=== PATIENT | male | born 1995 | race African-American/Black ===

== ENCOUNTER 2022-03-13 19:50 | Emergency (ER) | payer SELFPAY ==
[2022-03-13] MEDS ORDERED: HYDROCODONE/APAP 7.5/325 MG TAB ONE (20:37)
[2022-03-13] MEDS ORDERED: LIDOCAINE 1% W/EPI 1:100,000 30 ML VIAL ONE (20:38)
[2022-03-13] MEDS ORDERED: IBUPROFEN 400 MG TAB ONE (20:38)
[2022-03-13] MEDS ORDERED: BUPIVACAINE 0.5% PF 10 ML VIAL ONE (20:38)
--- NOTE | 2022-03-13 21:37 | EDPHYS ---
Physician Documentation [facility] Name: Jonathan Navarro Age: 26 yrs Sex: Male : 1995 Arrival Date: 03/13/2022 Time: 19:54 Bed 25 Private MD: ED Physician Ze Rider HPI: 03/13 20:30 This 26 yrs old Black Male presents to ER via Ambulatory with complaints of Abscess. cp 20:30 The patient presents with an abscess of the lower back. Description: erythematous, cp swollen, warm. 20:30 Onset: The symptoms/episode began/occurred 2 day(s) ago. Associated signs and symptoms: cp Pertinent positives: erythema, swelling, Pertinent negatives: discharge, drainage, fever, shortness of breath, vomiting. Historical: - Allergies: 20:04 No Known Allergies; kr3 - PMHx: 20:04 None; kr3 - PSHx: 20:04 None; kr3 - Immunization history:: Adult Immunizations. - Social history:: Smoking status: Patient reports the use of cigarette tobacco products, cigars, 6/day. ROS: 20:35 Constitutional: Negative for body aches, chills, fever, poor PO intake. cp 20:35 Eyes: Negative for injury, pain, redness, and discharge. cp 20:35 ENT: Negative for drainage from ear(s), ear pain, sore throat, difficulty swallowing, difficulty handling secretions. 20:35 Cardiovascular: Negative for chest pain. 20:35 Respiratory: Negative for cough, shortness of breath, wheezing. 20:35 Abdomen/GI: Negative for abdominal pain, nausea, vomiting, and diarrhea. 20:35 Back: Positive for pain at rest, pain with movement. 20:35 Skin: Positive for abscess, erythema, of the lower back. 20:35 Neuro: Negative for altered mental status, headache, weakness. 20:35 All other systems are negative. Exam: 20:40 Constitutional: The patient appears in no acute distress, alert, awake, non-toxic, well cp developed, well nourished. 20:40 Head/Face: Normocephalic, atraumatic. cp 20:40 Eyes: Periorbital structures: appear normal, Conjunctiva: normal, no exudate, no injection, Sclera: no appreciated abnormality, Lids and lashes: appear normal, bilaterally. 20:40 ENT: External ear(s): are unremarkable, Nose: is normal, Mouth: Lips: moist, Oral mucosa: moist, Posterior pharynx: Airway: no evidence of obstruction, patent. 20:40 Chest/axilla: Inspection: normal. 20:40 Cardiovascular: Rate: normal, Rhythm: regular. 20:40 Respiratory: the patient does not display signs of respiratory distress, Respirations: normal, no use of accessory muscles, no retractions, labored breathing, is not present, Breath sounds: are clear throughout, no decreased breath sounds, no stridor, no wheezing. 20:40 Abdomen/GI: Inspection: abdomen appears normal, Palpation: abdomen is soft and non-tender, in all quadrants. 20:40 Back: pain, that is moderate, of the mid low back, ROM is painful, with all movement. 20:40 Skin: abscess, that is moderate sized, of the mid low back, with surrounding cellulitis, that is mild. 20:40 Neuro: Orientation: to person, place \T\ time. Mentation: is normal, Motor: moves all fours, strength is normal, Sensation: is normal. Vital Signs: 19:59 BP 123 / 65; Pulse 83; Resp 16; Temp 98.9; Pulse Ox 98% on R/A; Weight 63.5 kg; Height kr3 6 ft. 0 in. (182.88 cm); Pain 7/10; 21:00 BP 117 / 75; Pulse 73; Resp 16; Pulse Ox 100% on R/A; tp1 22:15 BP 120 / 74; Pulse 51; Resp 16; Temp 98.2; Pulse Ox 95% on R/A; tp1 19:59 Body Mass Index 18.99 (63.50 kg, 182.88 cm) kr3 Procedures: 23:00 I \T\ D: Incision and drainage was performed for an abscess of the mid low back Prepped cp with Betadine, Anesthetized with 7 ccs mixture 1% lidocaine with epi and 0.5% marcaine. Incised with #11 blade. Drained moderate amount purulent fluid. Packed with iodoform gauze, Dressing: sterile 4x4 gauze, the patient tolerated the procedure well. MDM: 20:09 Patient medically screened. cp 21:00 Differential diagnosis: abscess, allergic reaction, cellulitis, sepsis. cp 23:11 Data reviewed: vital signs, nurses notes, lab test result(s), and as a result, I will cp discharge patient. 23:11 Counseling: I had a detailed discussion with the patient and/or guardian regarding: the cp historical points, exam findings, and any diagnostic results supporting the discharge/admit diagnosis, lab results, the need for outpatient follow up, a general surgeon, to return to the emergency department if symptoms worsen or persist or if there are any questions or concerns that arise at home. Response to treatment: the patient's symptoms have markedly improved after treatment, and as a result, I will discharge patient. 03/13 22:03 Order name: CBC with Diff; Complete Time: 22:59 cp 03/13 22:59 Interpretation: Normal except: WBC 13.90; RBC 3.92; HGB 12.7; HCT 38.1; MPV 7.5; NEUT A cp 9.1. 03/13 22:03 Order name: BMP; Complete Time: 22:59 cp 03/13 20:27 Order name: I\T\D Setup; Complete Time: 20:47 cp 03/13 22:03 Order name: IV; Complete Time: 22:11 cp 03/13 22:12 Order name: Recheck Vital Signs: recheck temperature please; Complete Time: 22:22 vc1 Administered Medications: 20:42 Drug: Ibuprofen 800 mg Route: PO; tp1 21:47 Follow up: Response: Pain is decreased tp1 20:42 Drug: Hydrocodone-Acetaminophen (7.5 mg-325 mg) 1 tabs Route: PO; tp1 21:47 Follow up: Response: Pain is decreased tp1 21:27 Drug: Lidocaine-Epinephrine -1%: (1:100,000) 10 ml {Note: Administered by PA Page.} tp1 Volume: 20 ml; Route: Infiltration; 21:47 Follow up: Response: No adverse reaction tp1 21:27 Drug: Marcaine (bupivacaine) (0.5 %) 10 ml {Note: administered by RAD PAGE .} Volume: 10 tp1 ml; Route: Infiltration; 21:47 Follow up: Response: No adverse reaction tp1 21:55 Drug: Bactrim (trimethoprim-sulfamethoxazole) (160 mg-800 mg (DS) 1 tablet Route: PO; tp1 21:55 Follow up: Response: Medication administered at discharge. tp1 22:11 Drug: NS 0.9% 1000 ml Route: IV; Rate: 1 bolus; Site: right antecubital; tp1 23:36 Follow up: Response: No adverse reaction; IV Status: Completed infusion; IV Intake: as6 1000ml 23:18 Drug: Clindamycin 600 mg Route: IVPB; Infused Over: 30 mins; Site: right antecubital; as6 23:36 Follow up: Response: No adverse reaction; IV Status: Completed infusion; IV Intake: [id number] Disposition Summary: 03/13/22 23:11 Discharge Ordered Location: Home(03/13/22 23:11) cp Problem: new(03/13/22 23:11) cp Symptoms: have improved(03/13/22 23:11) cp Condition: Stable(03/13/22 23:11) cp Diagnosis - Cutaneous abscess of back [any part, except buttock](03/13/22 23:11) cp Followup: cp - With: Timo Tellez MD - When: 1 - 2 days - Reason: Wound Recheck Discharge Instructions: - Discharge Summary Sheet cp - Skin Abscess cp - Incision and Drainage cp Forms: - Medication Reconciliation Form cp - Thank You Letter cp - Antibiotic Education cp - Prescription Opioid Use cp - Work release form as6 Prescriptions: - Clindamycin HCl 300 mg Oral Capsule - take 1 capsule by ORAL route every 6 hours for 10 days; 40 capsule; Refills: 0, cp Product Selection Permitted - Ibuprofen 800 mg Oral Tablet - take 1 tablet by ORAL route every 8 hours As needed take with food; 30 tablet; cp Refills: 0, Product Selection Permitted - Bactrim DS 800-160 mg Oral Tablet - take 1 tablet by ORAL route every 12 hours for 10 days; 20 tablet; Refills: 0, cp Product Selection Permitted - Tramadol 50 mg Oral Tablet - take 1 tablet by ORAL route every 8 hours as needed; 12 tablet; Refills: 0, cp Product Selection Permitted Signatures: Dispatcher [employer] EDMS Ze Hogan PA PA cp Jose Cruz RN RN as6 Lizeth Campo RN RN tp1 Svitlana Daily RN RN vc1 Alicia Pulido RN RN kr3 Corrections: (The following items were deleted from the chart) 22:03 21:37 Home cp cp 22: 21:37 new cp cp 22: 21:37 have improved cp cp 22: 21:37 Stable cp cp 22: 21:37 Cutaneous abscess of back [any part, except buttock] cp cp
--- NOTE | 2022-03-13 21:37 | ER ---
Nurse's Notes [facility] Name: Jonathan Navarro Age: 26 yrs Sex: Male : 1995 Arrival Date: 03/13/2022 Time: 19:54 Bed 25 Private MD: Diagnosis: Cutaneous abscess of back [any part, except buttock] Presentation: 03/13 19:59 Chief complaint: Patient states: I have a bump on the lower right back that has been kr3 there for years, it started smaller and has gotten bigger over the last couple and become painful. Coronavirus screen: Vaccine status: Patient reports being unvaccinated. Client denies travel out of the [place] in the last 14 days. Ebola Screen: Patient denies travel to an Ebola-affected area in the 21 days before illness onset. Initial Sepsis Screen: Does the patient meet any 2 criteria? No. Patient's initial sepsis screen is negative. Does the patient have a suspected source of infection? No. Patient's initial sepsis screen is negative. Risk Assessment: Do you want to hurt yourself or someone else? Patient reports no desire to harm self or others. Onset of symptoms was March 11, 2022. 19:59 Method Of Arrival: Ambulatory kr3 19:59 Acuity: REYES 4 kr3 Triage Assessment: 20:05 General: Appears in no apparent distress. uncomfortable, Behavior is calm, cooperative, kr3 appropriate for age. Pain: Complains of pain in coccyx. Historical: - Allergies: 20:04 No Known Allergies; kr3 - PMHx: 20:04 None; kr3 - PSHx: 20:04 None; kr3 - Immunization history:: Adult Immunizations. - Social history:: Smoking status: Patient reports the use of cigarette tobacco products, cigars, 6/day. Screenin:18 Abuse screen: Denies threats or abuse. Denies injuries from another. Nutritional tp1 screening: No deficits noted. Tuberculosis screening: No symptoms or risk factors identified. Fall Risk None identified. Assessment: 20:15 General: Appears in no apparent distress. uncomfortable, Behavior is calm, cooperative. tp1 Pain: Complains of pain in coccyx Pain does not radiate. Pain currently is 6 out of 10 on a pain scale. Quality of pain is described as sharp, Pain began 2-3 days ago. Is continuous, Aggravated by repositioning, weight bearing. Neuro: Level of Consciousness is awake, alert, obeys commands, Oriented to person, place, time, situation. Cardiovascular: Patient's skin is warm and dry. Respiratory: Airway is patent Respiratory effort is even, unlabored. GI: Abdomen is flat, non-distended. : No signs and/or symptoms were reported regarding the genitourinary system. EENT: No signs and/or symptoms were reported regarding the EENT system. Derm: Skin is pink, warm \\T\\ dry. swelling and redness noted to the coccyx. no drainage noted. Musculoskeletal: Circulation, motion, and sensation intact. Swelling present in coccyx. 21:30 Reassessment: Patient appears in no apparent distress at this time. No changes from tp1 previously documented assessment. Patient and/or family updated on plan of care and expected duration. Pain level reassessed. Patient is alert, oriented x 3, equal unlabored respirations, skin warm/dry/pink. 21:57 Neuro: Reports dizziness, "Body feels heavy". Neuro: Level of Consciousness is awake, tp1 alert, obeys commands, Oriented to person, place, time, situation. Cardiovascular: Capillary refill < 3 seconds in bilateral fingers. Cardiovascular: Reports diaphoresis, lightheadedness, Denies chest pain. Respiratory: Airway is patent Respiratory effort is even, unlabored, Denies shortness of breath. Derm: Skin is diaphoretic. 21:57 General: Behavior is cooperative, anxious. tp1 22:21 Reassessment: PT states he is feeling better and no longer appears diaphoretic. PT tp1 resting comfortably in bed on phone. Vital Signs: 19:59 BP 123 / 65; Pulse 83; Resp 16; Temp 98.9; Pulse Ox 98% on R/A; Weight 63.5 kg; Height kr3 6 ft. 0 in. (182.88 cm); Pain 7/10; 21:00 BP 117 / 75; Pulse 73; Resp 16; Pulse Ox 100% on R/A; tp1 22:15 BP 120 / 74; Pulse 51; Resp 16; Temp 98.2; Pulse Ox 95% on R/A; tp1 19:59 Body Mass Index 18.99 (63.50 kg, 182.88 cm) kr3 ED Course: 19:54 Patient arrived in ED. bp1 19:57 [facility] cp 19:57 Ze Rider MD is Attending Physician. cp 20:04 Triage completed. kr3 20:06 Arm band placed on right wrist. Patient placed in an exam room, on a stretcher. kr3 20:15 Lizeth Campo, RN is Primary Nurse. tp1 20:18 Patient has correct armband on for positive identification. Placed in gown. Bed in low tp1 position. Call light in reach. Pulse ox on. NIBP on. 21:37 Timo Tellez MD is Referral Physician. cp 21:45 Assist provider with I \\T\\ D: of an abscess on Set up I\\T\\D tray. Performed by Ze Hogan tp 1 RAD Patient tolerated well. 21:55 Patient did not have IV access during this emergency room visit. tp1 22:16 Inserted saline lock: 20 gauge in right antecubital area, using aseptic technique. tp1 Blood collected. 23:11 Timo Tellez MD is Referral Physician. cp Administered Medications: 20:42 Drug: Ibuprofen 800 mg Route: PO; tp1 21:47 Follow up: Response: Pain is decreased tp1 20:42 Drug: Hydrocodone-Acetaminophen (7.5 mg-325 mg) 1 tabs Route: PO; tp1 21:47 Follow up: Response: Pain is decreased tp1 21:27 Drug: Lidocaine-Epinephrine -1%: (1:100,000) 10 ml {Note: Administered by RAD Hogan.} tp1 Volume: 20 ml; Route: Infiltration; 21:47 Follow up: Response: No adverse reaction tp1 21:27 Drug: Marcaine (bupivacaine) (0.5 %) 10 ml {Note: administered by RAD HOGAN .} Volume: 10 tp1 ml; Route: Infiltration; 21:47 Follow up: Response: No adverse reaction tp1 21:55 Drug: Bactrim (trimethoprim-sulfamethoxazole) (160 mg-800 mg (DS) 1 tablet Route: PO; tp1 21:55 Follow up: Response: Medication administered at discharge. tp1 22:11 Drug: NS 0.9% 1000 ml Route: IV; Rate: 1 bolus; Site: right antecubital; tp1 23:36 Follow up: Response: No adverse reaction; IV Status: Completed infusion; IV Intake: as6 1000ml 23:18 Drug: Clindamycin 600 mg Route: IVPB; Infused Over: 30 mins; Site: right antecubital; as6 23:36 Follow up: Response: No adverse reaction; IV Status: Completed infusion; IV Intake: [id number] Medication: 21:55 VIS not applicable for this client. tp1 Intake: 23:36 IV: 50ml; Total: 50ml. as6 23:36 IV: 1000ml; Total: 1050ml. as6 Outcome: 21:37 Discharge ordered by MD. cp 21:55 Discharged to home ambulatory. tp1 21:55 Condition: good 21:55 Discharge instructions given to patient, Instructed on discharge instructions, follow up and referral plans. medication usage, Demonstrated understanding of instructions, follow-up care, medications, Prescriptions given X 3. 21:56 Patient left the ED. tp1 23:11 Discharge ordered by MD. cp 23:36 Patient left the ED. as6 Signatures: Ze Hogan PA PA cp [place]ia[place], Brittany bp1 Slawson, Ashby, RN RN as6 Lizeth Campo RN RN tp1 Alicia Pulido RN RN kr3 Corrections: (The following items were deleted from the chart) 22:21 21:57 Neuro: Reports dizziness, "Body feels heavy". tp1 tp1 22:21 21:57 Reassessment: tp1 tp1 22:22 21:57 Neuro: Level of Consciousness is awake, alert, obeys commands, Oriented to tp1 person, place, time, situation, tp1
[2022-03-13] MEDS ORDERED: SMZ./TMP. 800/160 MG TABLET ONE (21:52)
[2022-03-13] MEDS ORDERED: NA CHLORIDE 0.9% 1,000 ML ONE (22:04)
[2022-03-13 22:26] LABS: Absolute Lymphocytes (CBC) 3.3 K/uL (0.7-4.9); Hematocrit 38.1 % (39.6-49.0); Lymphocytes % 23.6 % (15.3-44.8); MCV 97.2 fL (80-100); MPV 7.5 fL (7.6-11.3); RBC Red Blood Cell Count 3.92 M/uL (4.33-5.43)
[2022-03-13 22:37] LABS: Potassium 3.9 mmol/L (3.5-5.1)
[2022-03-13] MEDS ORDERED: CLINDAMYCIN 600MG/D5W 600 MG/50 ML BAG IV ONE (23:17)
[2022-03-14 00:31] VITALS: BP 120/74; TEMP 98.2; O2SAT 95
== END 2022-03-13 23:36 | disposition home or self-care (01) ==
LOC: ER 19:50
PROC: 0H96XZZ Drainage of Back Skin, External Approach (ICD-10-PCS; principal; 2022-03-13)
DX: L02.212 Cutaneous abscess of back [any part, except buttock and flank] (principal)
CPT/HCPCS: 36415; 80048; 85025; 96361; 96365; 99284; J7030

== ENCOUNTER 2022-03-16 11:19 | Emergency (ER) | payer SELFPAY ==
--- NOTE | 2022-03-16 12:36 | EDPHYS ---
Physician Documentation [facility] Name: Jonathan Navarro Age: 26 yrs Sex: Male : 1995 Arrival Date: 03/16/2022 Time: 11:20 Bed 11 Private MD: ED Physician Esa Stark HPI: 03/16 12:05 This 26 yrs old Black Male presents to ER via Ambulatory with complaints of Wound cp Recheck. 12:05 Patient presents to ED for recheck of: abscess. The affected area is on the lower back. cp Previous treatment: The patient was initially treated 3 day(s) ago, the care was rendered at [facility], Treatment type: The patient's original treatment included an I\T\D, oral antibiotics, Bactrim, Clindamycin. Progress: The patient reports Improving. Historical: - Allergies: 12:00 No Known Allergies; kb3 - Home Meds: 12:00 None [Active]; kb3 - PMHx: 12:00 None; kb3 - PSHx: 12:00 None; kb3 - Immunization history:: Adult Immunizations up to date, Client reports having NOT received the Covid vaccine. Last tetanus immunization: up to date. - Social history:: Smoking status: Patient denies any tobacco usage or history of. ROS: 12:10 Constitutional: Negative for body aches, chills, fever. cp 12:10 Eyes: Negative for injury, pain, redness, and discharge. cp 12:10 ENT: Negative for drainage from ear(s), ear pain, sore throat, difficulty swallowing, difficulty handling secretions. 12:10 Cardiovascular: Negative for chest pain. 12:10 Respiratory: Negative for cough, shortness of breath, wheezing. 12:10 Abdomen/GI: Negative for abdominal pain, nausea, vomiting, and diarrhea. 12:10 Skin: Positive for abscess, of the lower back. 12:10 Neuro: Negative for altered mental status, headache, weakness. 12:10 All other systems are negative. Exam: 12:15 Constitutional: The patient appears in no acute distress, alert, awake, non-toxic, well cp developed, well nourished. 12:15 Skin: abscess, of the lower back, Wound recheck: Abscess: the wound has improved, decreased discharge, decreased erythema, decreased surrounding cellulitis, decreased swelling. Vital Signs: 11:58 BP 130 / 66; Pulse 62; Resp 18; Temp 98.1; Pulse Ox 100% ; Weight 68.04 kg; Height 6 kb3 ft. 0 in. (182.88 cm); Pain 0/10; 11:58 Body Mass Index 20.34 (68.04 kg, 182.88 cm) kb3 Procedures: 12:30 Performed repacking of abscess with iodoform 1/4 inch gauze. cp MDM: 12:02 Patient medically screened. cp 12:35 Data reviewed: vital signs, nurses notes, and as a result, I will discharge patient. cp 12:35 Counseling: I had a detailed discussion with the patient and/or guardian regarding: the cp historical points, exam findings, and any diagnostic results supporting the discharge/admit diagnosis, the need for outpatient follow up, a general surgeon. Administered Medications: No medications were administered Disposition: 13:45 Co-signature as Attending Physician, Esa Stark DO I was immediately available on-site ms3 in the Emergency Department for consultation in the care of the patient.. Disposition Summary: 03/16/22 12:35 Discharge Ordered Location: Home cp Problem: new cp Symptoms: have improved cp Condition: Stable cp Diagnosis - Encounter for attention to dressings, sutures and drains cp Followup: cp - With: Timo Tellez MD - When: 1 - 2 days - Reason: Wound Recheck Discharge Instructions: - Discharge Summary Sheet cp - Incision and Drainage, Care After cp Forms: - Medication Reconciliation Form cp - Thank You Letter cp - Antibiotic Education cp - Prescription Opioid Use cp Signatures: Ze Hogan PA PA cp Esa Stark DO DO ms3 Rachel Fuentes, RN RN kb3
--- NOTE | 2022-03-16 12:36 | ER ---
Nurse's Notes [facility] Name: Jonathan Navarro Age: 26 yrs Sex: Male : 1995 Arrival Date: 03/16/2022 Time: 11:20 Bed 11 Private MD: Diagnosis: Encounter for attention to dressings, sutures and drains Presentation: 03/16 11:58 Chief complaint: Patient states: Pt reporting back to ED for wound recheck and dressing kb3 change. Pt was in this ED on Sat and had a pilonidal cyst incision and drainage procedure. Coronavirus screen: Vaccine status: Patient reports being unvaccinated. Client denies travel out of the [place] in the last 14 days. Ebola Screen: Patient negative for fever greater than or equal to 101.5 degrees Fahrenheit, and additional compatible Ebola Virus Disease symptoms Patient denies exposure to infectious person. Patient denies travel to an Ebola-affected area in the 21 days before illness onset. No symptoms or risks identified at this time. Initial Sepsis Screen: Does the patient meet any 2 criteria? No. Patient's initial sepsis screen is negative. Does the patient have a suspected source of infection? No. Patient's initial sepsis screen is negative. Risk Assessment: Do you want to hurt yourself or someone else? Patient reports no desire to harm self or others. Onset of symptoms was March 14, 2022. 11:58 Method Of Arrival: Ambulatory kb3 11:58 Acuity: REYES 5 kb3 Triage Assessment: 12:00 General: Appears in no apparent distress. Behavior is calm, cooperative. Pain: Denies kb3 pain. Historical: - Allergies: 12:00 No Known Allergies; kb3 - Home Meds: 12:00 None [Active]; kb3 - PMHx: 12:00 None; kb3 - PSHx: 12:00 None; kb3 - Immunization history:: Adult Immunizations up to date, Client reports having NOT received the Covid vaccine. Last tetanus immunization: up to date. - Social history:: Smoking status: Patient denies any tobacco usage or history of. Screenin:01 Abuse screen: Denies threats or abuse. Denies injuries from another. Nutritional jl7 screening: No deficits noted. Tuberculosis screening: No symptoms or risk factors identified. Fall Risk None identified. Vital Signs: 11:58 BP 130 / 66; Pulse 62; Resp 18; Temp 98.1; Pulse Ox 100% ; Weight 68.04 kg; Height 6 kb3 ft. 0 in. (182.88 cm); Pain 0/10; 11:58 Body Mass Index 20.34 (68.04 kg, 182.88 cm) kb3 ED Course: 11:20 Patient arrived in ED. am2 11:22 Ze Hogan PA is PHCP. cp 11:22 Esa Stark DO is Attending Physician. cp 12:00 Triage completed. kb3 12:00 Arm band placed on right wrist. kb3 12:35 Timo Tellez MD is Referral Physician. cp 12:44 Pily Stokes, NADINE is Primary Nurse. jl7 13:01 Patient has correct armband on for positive identification. jl7 13:01 Assist provider with I \T\ D: of an abscess on Set up I\T\D tray. Performed by Ze Hogan jl 7 RAD Wound packed. iodoform gauze, Patient tolerated well. Patient did not have IV access during this emergency room visit. Administered Medications: No medications were administered Medication: 13:01 VIS not applicable for this client. jl7 Outcome: 12:35 Discharge ordered by . cp 13:01 Discharged to home ambulatory. jl7 13:01 Condition: stable 13:01 Discharge instructions given to patient, Instructed on discharge instructions, follow up and referral plans. Demonstrated understanding of instructions, follow-up care. 13:02 Patient left the ED. jl7 Signatures: Ze Hogan PA PA cp Leal, Jahala, RN RN jl7 Jojo Samaniego am2 Rachel Fuentes, RN RN kb3
[2022-03-16 13:14] VITALS: BP 130/66; TEMP 98.1; O2SAT 100
== END 2022-03-16 13:02 | disposition home or self-care (01) ==
LOC: ER 11:19
DX: Z48.01 Encounter for change or removal of surgical wound dressing (principal)
CPT/HCPCS: 99283